=== PATIENT | female | born 1975 | race Hispanic/Latino ===

== ENCOUNTER → 2017-01-14 | Outpatient (CLI) | payer BC, OTHER ==
--- NOTE | 2017-01-14 15:58 | Diagnostic Imaging Report ---
EXAMINATION: Transabdominal and transvaginal pelvic ultrasound. INDICATION: Pelvic pain. FINDINGS: The uterus is 8.2 x 5.2 x 4 cm. The endometrial stripe is 0.7 cm in thickness. The myometrium is fairly homogeneous with no focal mass identified. The right ovary is obscured by bowel gas. The left ovary is 2.7 x 2.2 x 1.4 cm. Simple appearing cystic lesions adjacent to the left ovary or potentially in the adnexa or exophytic from the left ovary are seen with no solid component identified. The ovary itself has vascularity demonstrated with venous and arterial waveforms. IMPRESSION: The right ovary is not seen. Simple appearing cystic structures in the left adnexa could be exophytic follicles from the ovary or nonspecific simple cysts in the adnexa with no solid component. Dictated by: Dictated on workstation # [id number]
== END ==
LOC: RAD 13:01
PROVIDERS: ATTEND Family Medicine
DX: N83.8 Other noninflammatory disorders of ovary, fallopian tube and broad ligament (principal)
CPT/HCPCS: 76830; 76856

== ENCOUNTER → 2017-01-14 | Outpatient (CLI) | payer BC, OTHER ==
--- NOTE | 2017-01-16 14:26 | Diagnostic Imaging Report ---
Bilateral screening mammogram 2D views with tomosynthesis. The current study was also evaluated with a Computer Aided Detection (CAD) system. INDICATION: Screening. No current complaints stated on the questionnaire. COMPARISON: 05/27/2014. FINDINGS: The breasts are composed of heterogeneously dense parenchyma which may decrease mammographic sensitivity. Benign-appearing calcifications in the left breast are seen. Allowing for technique and positional differences, no suspicious change is seen. IMPRESSION: No significant change. ACR BI-RADS Category 2: Benign findings. Result letter will be mailed to the patient. Note: At least 10% of breast cancer is not imaged by mammography. Dictated by: Dictated on workstation # [id number]
== END ==
LOC: RAD 13:06
PROVIDERS: ATTEND Family Medicine
DX: Z12.31 Encounter for screening mammogram for malignant neoplasm of breast (principal)
CPT/HCPCS: 77067